=== PATIENT | female | born 1980 | race Caucasian/White ===

== ENCOUNTER 2018-04-07 04:51 | Observation (INO) ==
[2018-04-07] MEDS ORDERED: Isovue-370 500 ML INFUS..BTL IV ONE (05:24)
[2018-04-07] MEDS ORDERED: *HR* HYDROcodone/Acet 5/325 mg TABLET PO ONE (05:43)
--- NOTE | 2018-04-07 05:46 | Emergency Department Note ---
Disposition Clinical Impression: Neck pain Cellulitis Qualifiers: Site of cellulitis: unspecified site Qualified Code(s): L03.90 - Cellulitis, unspecified Headache Qualifiers: Headache type: unspecified Headache chronicity pattern: acute headache Intractability: not intractable Qualified Code(s): R51 - Headache Disposition: Still a Patient Condition: Good Referrals: NONE,PCP [Primary Care Provider] - Forms: ED Satisfaction Letter Time of Disposition: 06:35 General Adult HPI - General Chief complaint: ED Skin/Abscess/Foreign Body Stated complaint: bug bite rt ankle/neck stiffness Time Seen by Provider: 04/07/18 04:56 Source: patient Limitations: no limitations Nursing Notes Reviewed: Yes Vital Signs Reviewed: Yes - History of Present Illness HPI Narrative: 38-year-old female presents with multiple complaints. She mentioned she had a headache that started 4 nights ago. She is unable to tell me if it was gradual in onset, or acute, or what she was doing at the time of his onset, but she does describe it has been constant. She mentions that ibuprofen makes the pain more dull, but does not alleviate the pain. 2 days ago, she started to have mild neck pain that has been constant since then. Then yesterday morning, she noticed her right ankle had become red, and tender. She states that she had noticed that feeling itchy did not notice the redness until she awoke yesterday morning. She denies any fever or chills, confusion, vision changes, nausea, vomiting, weakness, weight loss, appetite changes, h/o cancer, trauma injury or trauma, or history of headache. Pain Scale: 7 - Related Data Previous Rx's Medication Instructions Recorded Acetaminophen w/Cod 300-30 mg 1 each PO Q6HR #12 tablet 05/05/17 [Tylenol w/Codeine #3] Allergies Allergy/AdvReac Type Severity Reaction Status Date / Time prednisone Allergy Severe Confusion Verified 05/26/15 08:18 vancomycin Allergy Severe Flushing Verified 05/26/15 08:19 tramadol [From Ultram] AdvReac Confusion Verified 09/11/15 19:02 All systems ED: reviewed and negative except as stated. Review of Systems: As Per HPI Constitutional: Reports: as per HPI Eyes: Reports: as per HPI. Denies: eye discharge ENT ED: Denies: throat pain, dental pain, congestion Cardiovascular: Denies: chest pain, palpitations Respiratory: Denies: cough, dyspnea, wheezes, hemoptysis Gastrointestinal: Reports: as per HPI Genitourinary: Denies: dysuria Musculoskeletal: Reports: as per HPI. 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 Absent: conjunctival injection, nystagmus, periorbital swelling, periorbital tenderness - ENT ENT exam: normal exam, normal oropharynx, mucous membranes moist - Neck Neck exam: Present: normal inspection, full ROM, trachea midline. Absent: meningismus, lymphadenopathy - Chest Chest inspection: Present: symmetric chest wall rise - Respiratory Respiratory exam: Present: normal lung sounds bilaterally. Absent: respiratory distress - Cardiovascular Cardiovascular exam: Present: regular rate, normal rhythm - Abdominal Exam Abdominal exam: Present: soft, Non-Tender - Extremities Exam Extremities exam: Present: full ROM, normal capillary refill - Expanded Lower Extremity Exam Hip/Pelvis exam: Absent: full ROM Ankle exam: Present: erythema (right medial) 1 - erythema Foot/toe exam: Present: normal inspection, full ROM Neurovascular/Tendon exam: Present: normal capillary refill. Absent: pulse deficit, motor deficit, sensory deficit Gait: observed and normal - Back Exam Back exam: Present: full ROM - Neurological Exam Neurological exam: Present: alert, oriented X3, CN II-XII intact, normal gait, reflexes normal. Absent: motor sensory deficit - Psychiatric Psychiatric exam: Present: normal affect, normal mood - Skin Skin exam: Present: warm, dry, intact, normal color. Absent: rash, cyanosis, diaphoresis Course Course Narrative: Patient presents with headache 4 days, neck pain 2 days, and erythema on her ankle times one day. Patient seen and examined. her vitals within normal limits. Medial aspect of right ankle, does show well demarcated erythema, with mild tenderness and warmth, consistent with cellulitis. I see no evidence of abscess, lymphangitic streaking, nor edema. On exam: No facial swelling, throat swelling, or lymphadenopathy. Pt afebrile, no AMS, no known h/o of immune compromised state; patient denies any systemic symptoms Kernig's and Brudzinski's test negative, no meningeal signs. No vertebral tenderness. No gross focal neurological deficits. Discussed patient with Dr. Shearer, with no history of headaches, neck pain, he did advise for CTA head, neck. Analgesics ordered. - Reevaluation(s) Reevaluation #1: Patient returned from CT scan. Report pending. She has had some improvement after Norc. Patient discussed with Dr. Shearer, who also had face time with patient. Due to concerning rash, reported bug bite, neck pain, and headache, we will plan for lumbar puncture. He also advised for 2 g ceftriaxone, and vancomycin. Patient does have documented reaction to vancomycin, describes flushing and "red man" syndrome. Did discuss with Dr. Shearer, who advised for in a drill, and to run vancomycin at half normal rate. We will order Benadryl for this, and Reglan for headache as well. Due to shift change, care of this patient will be transferred to day shift provider Ricco Duke CNP, and likely daytime attending physicians. Please see their documentation for further details, and final disposition of patient. Time: 06:34 Vital Signs Temperature 98.0 F 04/07/18 04:54 Pulse Rate 76 04/07/18 04:54 Respiratory Rate 16 04/07/18 04:54 Blood Pressure 127/76 04/07/18 04:54 O2 Sat by Pulse Oximetry 99 04/07/18 04:54 Temperature 98.0 F 04/07/18 05:11 Pulse Rate 62 04/07/18 06:29 Respiratory Rate 16 04/07/18 06:29 Blood Pressure 123/52 04/07/18 06:29 O2 Sat by Pulse Oximetry 98 04/07/18 06:29 Oxygen Delivery Oxygen Delivery Room Air Attestation Statement - Attestation Attestation: I examined this patient and my medical decision-making was reviewed with the Resident Physician. I agree with the documented findings, disposition and treatment plan as described except to the extent set forth below. Findings consistent with neck pain, headache with no history of migrainous headaches. No previous imaging. Patient did sustain a bug bite with surrounding cellulitis at the initiation of her symptoms. I cannot clinically prove that this was a bug bite but I do have a rash in the setting of neck pain and headache. We will obtain CT angiography of the head and the neck to rule out aneurysmal bleeding and if this is negative we will offer a lumbar puncture to rule out encephalitis versus meningitis. Given the findings of possible cellulitis I would empirically treated with vancomycin as well as ceftriaxone at this point. 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 This will also treat her headache and she will be given metoclopramide as well. The patient will be signed out for lumbar puncture to Dr. bojorquez
[2018-04-07] MEDS ORDERED: cefTRIAXone 2,000 MG in Water for inj. (sterile) 20 ML 20 ML IVP ONE (06:21)
[2018-04-07] MEDS ORDERED: Metoclopramide 10 MG/2 ML VIAL IVP ONE ×2 (06:30→22:30)
[2018-04-07 06:38] LABS: Basophils # 0.1 K/mcL (0.0-0.2); Basophils % 0.8 %; Eosinophils # 0.2 K/mcL (0.0-0.6); Eosinophils % 2.8 %; Hematocrit 41.6 % (35.3-44.9); Hemoglobin 13.8 g/dL (11.5-15.4); Immature Granulocytes % 0.3 % (0-4); Lymphocytes # 1.6 K/mcL (0.6-4.6); Lymphocytes % 20.8 %; Mean Corpuscular HGB Conc 33.2 g/dL (31.6-35.5); Mean Corpuscular Hemoglobin 30.6 pg (28.0-33.3); Mean Corpuscular Volume 92.2 fL (83.0-100.0); Mean Platelet Volume 10.8 fL (9.4-12.4); Monocytes # 0.7 K/mcL (0.0-1.3); Monocytes % 9.3 %; Neutrophils # 5.2 K/mcL (1.6-8.9); Platelet Count 196 K/mcL (140-400); Red Blood Count 4.51 M/mcL (3.82-4.97); Red Cell Distribution Width 13.1 % (11.5-14.5)
--- NOTE | 2018-04-07 06:39 | Emergency Department Note ---
Disposition Clinical Impression: Neck pain Cellulitis Qualifiers: Site of cellulitis: unspecified site Qualified Code(s): L03.90 - Cellulitis, unspecified Headache Qualifiers: Headache type: unspecified Headache chronicity pattern: acute headache Intractability: not intractable Qualified Code(s): R51 - Headache Disposition: Admitted As Inpatient Condition: Good Time of Disposition: 09:07 General Adult HPI - General Chief complaint: ED Skin/Abscess/Foreign Body Stated complaint: bug bite rt ankle/neck stiffness Time Seen by Provider: 04/07/18 04:56 Source: patient Limitations: no limitations - History of Present Illness Pain Scale: 7 - Related Data Previous Rx's Medication Instructions Recorded Acetaminophen w/Cod 300-30 mg 1 each PO Q6HR #12 tablet 05/05/17 [Tylenol w/Codeine #3] Allergies Allergy/AdvReac Type Severity Reaction Status Date / Time prednisone Allergy Severe Confusion Verified 05/26/15 08:18 vancomycin Allergy Severe Flushing Verified 05/26/15 08:19 tramadol [From [facility]] AdvReac Confusion Verified 09/11/15 19:02 Constitutional: Reports: as per HPI Eyes: Reports: as per HPI. Denies: eye discharge ENT ED: Denies: throat pain, dental pain, congestion Cardiovascular: Denies: chest pain, palpitations Respiratory: Denies: cough, dyspnea, wheezes, hemoptysis Gastrointestinal: Reports: as per HPI Genitourinary: Denies: dysuria Musculoskeletal: Reports: as per HPI. 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 We see Sid's documentation for care performed prior to my arrival. Briefly, this is an alert and oriented nontoxic-appearing 88-year-old female that presented for a "bug bite" on her ankle that was noticed yesterday. He also reported a headache for the past 4 days and neck pain for the past 2 days. She denies any history of prior headaches. She had a negative Kernig's and Brudzinski's test. No meningeal signs present. This patient's case was discussed with Dr. Shearer, ED attending. He advised a CTA of the head and neck as well as basic screening labs followed by a lumbar puncture. Imaging and laboratory workup pending at this time. The patient was started on Rocephin and vancomycin for her apparent right ankle cellulitis. Diagnostic lumbar puncture performed. Please see Dr. Haq's procedural note. 0850: I spoke with Dr. Alaniz, hospitalist on-call. He has agreed to accept the patient for further observation and treatment. Vital Signs Temperature 98.0 F 04/07/18 04:54 Pulse Rate 76 04/07/18 04:54 Respiratory Rate 16 04/07/18 04:54 Blood Pressure 127/76 04/07/18 04:54 O2 Sat by Pulse Oximetry 99 04/07/18 04:54 Temperature 98.0 F 04/07/18 05:11 Pulse Rate 59 04/07/18 08:42 Respiratory Rate 18 04/07/18 08:42 Blood Pressure 119/78 04/07/18 08:42 O2 Sat by Pulse Oximetry 100 04/07/18 08:42 Oxygen Delivery Oxygen Delivery Room Air Medical Decision Making - Medical Records Medical records reviewed: Yes I reviewed the patient's medical records. - Lab Data Lab results reviewed: Yes I reviewed the patient's lab results. Lab results narrative: Laboratory Last Values WBC 7.9 K/mcL (4.3-11.1) 04/07/18 05:35 RBC 4.51 M/mcL (3.82-4.97) 04/07/18 05:35 Hgb 13.8 g/dL (11.5-15.4) 04/07/18 05:35 Hct 41.6 % (35.3-44.9) 04/07/18 05:35 MCV 92.2 fL (83.0-100.0) 04/07/18 05:35 MCH 30.6 pg (28.0-33.3) 04/07/18 05:35 MCHC 33.2 g/dL (31.6-35.5) 04/07/18 05:35 RDW 13.1 % (11.5-14.5) 04/07/18 05:35 Plt Count 196 K/mcL (140-400) 04/07/18 05:35 MPV 10.8 fL (9.4-12.4) 04/07/18 05:35 Immature Gran % 0.3 % (0-4) 04/07/18 05:35 Seg Neutrophils % 66.0 % 04/07/18 05:35 Lymphocytes % 20.8 % 04/07/18 05:35 Monocytes % 9.3 % 04/07/18 05:35 Eosinophils % 2.8 % 04/07/18 05:35 Basophils % 0.8 % 04/07/18 05:35 Neutrophils # 5.2 K/mcL (1.6-8.9) 04/07/18 05:35 Lymphocytes # 1.6 K/mcL (0.6-4.6) 04/07/18 05:35 Monocytes # 0.7 K/mcL (0.0-1.3) 04/07/18 05:35 Eosinophils # 0.2 K/mcL (0.0-0.6) 04/07/18 05:35 Basophils # 0.1 K/mcL (0.0-0.2) 04/07/18 05:35 PT 11.0 Seconds (9.4-12.1) 04/07/18 06:35 INR 1.0 04/07/18 06:35 APTT 32.2 Seconds (26.0-36.0) 04/07/18 06:35 Sodium 140 mEq/L (136-145) 04/07/18 05:35 Potassium 3.8 mEq/L (3.5-5.1) 04/07/18 05:35 Chloride 108 mEq/L (98-107) H 04/07/18 05:35 Carbon Dioxide 24 mEq/L (23-29) 04/07/18 05:35 BUN 9 mg/dL (6-20) 04/07/18 05:35 Creatinine 0.72 mg/dL (0.60-1.20) 04/07/18 05:35 Est GFR ( Amer) > 60 (> 60) 04/07/18 05:35 Est GFR (Non-Af Amer) > 60 (> 60) 04/07/18 05:35 BUN/Creatinine Ratio 13 (6-26) 04/07/18 05:35 Glucose 106 mg/dL (70-105) H 04/07/18 05:35 Calculated Osmolality 289 (280-300) 04/07/18 05:35 Calcium 9.0 mg/dL (8.6-10.3) 04/07/18 05:35 CSF Volume 5.0 mL 04/07/18 08:25 CSF Appearance Clear (Clear) 04/07/18 08:25 CSF Color Colorless (Colorless) 04/07/18 08:25 CSF RBC < 0.002 M/mcL (0.000-0.002) 04/07/18 08:25 CSF Tot Nucleated Cells < 3 TNC/mcL (0-5) 04/07/18 08:25 Result diagrams: 04/07/18 05:35 04/07/18 05:35 Lab Results 04/07/18 04/07/18 04/07/18 Range/Units 05:35 05:35 06:35 WBC 7.9 (4.3-11.1) K/mcL RBC 4.51 (3.82-4.97) M/mcL Hgb 13.8 (11.5-15.4) g/dL Hct 41.6 (35.3-44.9) % MCV 92.2 (83.0-100.0) fL MCH 30.6 (28.0-33.3) pg MCHC 33.2 (31.6-35.5) g/dL RDW 13.1 (11.5-14.5) % Plt Count 196 (140-400) K/mcL MPV 10.8 (9.4-12.4) fL Immature Gran % 0.3 (0-4) % Seg Neutrophils % 66.0 % Lymphocytes % 20.8 % Monocytes % 9.3 % Eosinophils % 2.8 % Basophils % 0.8 % Neutrophils # 5.2 (1.6-8.9) K/mcL Lymphocytes # 1.6 (0.6-4.6) K/mcL Monocytes # 0.7 (0.0-1.3) K/mcL Eosinophils # 0.2 (0.0-0.6) K/mcL Basophils # 0.1 (0.0-0.2) K/mcL PT 11.0 (9.4-12.1) Seconds INR 1.0 APTT 32.2 (26.0-36.0) Seconds Sodium 140 (136-145) mEq/L Potassium 3.8 (3.5-5.1) mEq/L Chloride 108 H (98-107) mEq/L Carbon Dioxide 24 (23-29) mEq/L BUN 9 (6-20) mg/dL Creatinine 0.72 (0.60-1.20) mg/dL Est GFR ( Amer) > 60 (> 60) Est GFR (Non-Af Amer) > 60 (> 60) BUN/Creatinine Ratio 13 (6-26) Glucose 106 H (70-105) mg/dL Calculated Osmolality 289 (280-300) Calcium 9.0 (8.6-10.3) mg/dL CSF Volume mL CSF Appearance (Clear) CSF Color (Colorless) CSF RBC (0.000 - 0.002) M/mcL CSF Tot Nucleated Cells (0-5) TNC/mcL 04/07/18 Range/Units 08:25 WBC (4.3-11.1) K/mcL RBC (3.82-4.97) M/mcL Hgb (11.5-15.4) g/dL Hct (35.3-44.9) % MCV (83.0-100.0) fL MCH (28.0-33.3) pg MCHC (31.6-35.5) g/dL RDW (11.5-14.5) % Plt Count (140-400) K/mcL MPV (9.4-12.4) fL Immature Gran % (0-4) % Seg Neutrophils % % Lymphocytes % % Monocytes % % Eosinophils % % Basophils % % Neutrophils # (1.6-8.9) K/mcL Lymphocytes # (0.6-4.6) K/mcL Monocytes # (0.0-1.3) K/mcL Eosinophils # (0.0-0.6) K/mcL Basophils # (0.0-0.2) K/mcL PT (9.4-12.1) Seconds INR APTT (26.0-36.0) Seconds Sodium (136-145) mEq/L Potassium (3.5-5.1) mEq/L Chloride (98-107) mEq/L Carbon Dioxide (23-29) mEq/L BUN (6-20) mg/dL Creatinine (0.60-1.20) mg/dL Est GFR ( Amer) (> 60) Est GFR (Non-Af Amer) (> 60) BUN/Creatinine Ratio (6-26) Glucose (70-105) mg/dL Calculated Osmolality (280-300) Calcium (8.6-10.3) mg/dL CSF Volume 5.0 mL CSF Appearance Clear (Clear) CSF Color Colorless (Colorless) CSF RBC < 0.002 (0.000 - 0.002) M/mcL CSF Tot Nucleated Cells < 3 (0-5) TNC/mcL - Radiology Data Radiology results reviewed: Yes I reviewed the patient's radiology results. Angiography CT 04/07/18 05:24 IMPRESSION: Unremarkable CTA of the head and neck. Anomalous right subclavian artery D/ / Waqar Garcia MD / Waqar Garcia MD Interpreting Provider: Waqar Garcia MD Neck CTA 04/07/18 05:24
[2018-04-07 06:45] LABS: BUN/Creatinine Ratio 13 (6-26); Blood Urea Nitrogen 9 mg/dL (6-20); Carbon Dioxide 24 mEq/L (23-29); Chloride 108 mEq/L (98-107); Glucose 106 mg/dL (70-105); Osmolality,Calculated 289 (280-300); Potassium 3.8 mEq/L (3.5-5.1); Sodium 140 mEq/L (136-145); eGFR For African Americans > 60 (> 60); eGFR For Non-African Americans > 60 (> 60)
[2018-04-07 07:34] LABS: Activated Partial Thrombo Time 32.2 Seconds (26.0-36.0)
--- NOTE | 2018-04-07 07:40 | Emergency Department Note ---
Disposition Clinical Impression: Neck pain Cellulitis Qualifiers: Site of cellulitis: unspecified site Qualified Code(s): L03.90 - Cellulitis, unspecified Headache Qualifiers: Headache type: unspecified Headache chronicity pattern: acute headache Intractability: not intractable Qualified Code(s): R51 - Headache Disposition: Admitted As Inpatient Condition: Good General Adult HPI - General Chief complaint: ED Skin/Abscess/Foreign Body Stated complaint: bug bite rt ankle/neck stiffness Time Seen by Provider: 04/07/18 04:56 Source: patient Limitations: no limitations - History of Present Illness Pain Scale: 7 - Related Data Home Medications Medication Instructions Recorded Confirmed Ibuprofen [Motrin Ib] 800 mg PO Q8H PRN 04/07/18 04/07/18 Allergies Allergy/AdvReac Type Severity Reaction Status Date / Time prednisone AdvReac Severe Confusion Verified 04/07/18 09:46 vancomycin AdvReac Severe See Verified 04/07/18 09:46 Comments tramadol [From Ultram] AdvReac Nausea Verified 04/07/18 09:46 Constitutional: Reports: as per HPI Eyes: Reports: as per HPI. Denies: eye discharge ENT ED: Denies: throat pain, dental pain, congestion Cardiovascular: Denies: chest pain, palpitations Respiratory: Denies: cough, dyspnea, wheezes, hemoptysis Gastrointestinal: Reports: as per HPI Genitourinary: Denies: dysuria Musculoskeletal: Reports: as per HPI. 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, bilateral tubal ligation - Social History Smoking Status: Current every day smoker Smokeless Tobacco Status: No Alcohol use: Reports: none Drug use: Reports: none Physical Exam - General Limitations: no limitations General appearance: alert, in no apparent distress Course Vital Signs Temperature 98.0 F 04/07/18 04:54 Pulse Rate 76 04/07/18 04:54 Respiratory Rate 16 04/07/18 04:54 Blood Pressure 127/76 04/07/18 04:54 O2 Sat by Pulse Oximetry 99 04/07/18 04:54 Temperature 98.0 F 04/07/18 05:11 Pulse Rate 59 04/07/18 08:42 Respiratory Rate 18 04/07/18 08:42 Blood Pressure 119/78 04/07/18 08:42 O2 Sat by Pulse Oximetry 100 04/07/18 08:42 Oxygen Delivery Oxygen Delivery Room Air Medical Decision Making - Lab Data Result diagrams: 04/07/18 05:35 04/07/18 05:35 Lab Results 04/07/18 04/07/18 04/07/18 Range/Units 05:35 05:35 06:35 WBC 7.9 (4.3-11.1) K/mcL RBC 4.51 (3.82-4.97) M/mcL Hgb 13.8 (11.5-15.4) g/dL Hct 41.6 (35.3-44.9) % MCV 92.2 (83.0-100.0) fL MCH 30.6 (28.0-33.3) pg MCHC 33.2 (31.6-35.5) g/dL RDW 13.1 (11.5-14.5) % Plt Count 196 (140-400) K/mcL MPV 10.8 (9.4-12.4) fL Immature Gran % 0.3 (0-4) % Seg Neutrophils % 66.0 % Lymphocytes % 20.8 % Monocytes % 9.3 % Eosinophils % 2.8 % Basophils % 0.8 % Neutrophils # 5.2 (1.6-8.9) K/mcL Lymphocytes # 1.6 (0.6-4.6) K/mcL Monocytes # 0.7 (0.0-1.3) K/mcL Eosinophils # 0.2 (0.0-0.6) K/mcL Basophils # 0.1 (0.0-0.2) K/mcL PT 11.0 (9.4-12.1) Seconds INR 1.0 APTT 32.2 (26.0-36.0) Seconds Sodium 140 (136-145) mEq/L Potassium 3.8 (3.5-5.1) mEq/L Chloride 108 H (98-107) mEq/L Carbon Dioxide 24 (23-29) mEq/L BUN 9 (6-20) mg/dL Creatinine 0.72 (0.60-1.20) mg/dL Est GFR ( Amer) > 60 (> 60) Est GFR (Non-Af Amer) > 60 (> 60) BUN/Creatinine Ratio 13 (6-26) Glucose 106 H (70-105) mg/dL Calculated Osmolality 289 (280-300) Calcium 9.0 (8.6-10.3) mg/dL CSF Volume mL CSF Appearance (Clear) CSF Color (Colorless) CSF RBC (0.000 - 0.002) M/mcL CSF Tot Nucleated Cells (0-5) TNC/mcL CSF Glucose (40-70) mg/dL CSF Xanth Comm (Not Observe) CSF Total Protein (15-45) mg/dL 04/07/18 Range/Units 08:25 WBC (4.3-11.1) K/mcL RBC (3.82-4.97) M/mcL Hgb (11.5-15.4) g/dL Hct (35.3-44.9) % MCV (83.0-100.0) fL MCH (28.0-33.3) pg MCHC (31.6-35.5) g/dL RDW (11.5-14.5) % Plt Count (140-400) K/mcL MPV (9.4-12.4) fL Immature Gran % (0-4) % Seg Neutrophils % % Lymphocytes % % Monocytes % % Eosinophils % % Basophils % % Neutrophils # (1.6-8.9) K/mcL Lymphocytes # (0.6-4.6) K/mcL Monocytes # (0.0-1.3) K/mcL Eosinophils # (0.0-0.6) K/mcL Basophils # (0.0-0.2) K/mcL PT (9.4-12.1) Seconds INR APTT (26.0-36.0) Seconds Sodium (136-145) mEq/L Potassium (3.5-5.1) mEq/L Chloride (98-107) mEq/L Carbon Dioxide (23-29) mEq/L BUN (6-20) mg/dL Creatinine (0.60-1.20) mg/dL Est GFR ( Amer) (> 60) Est GFR (Non-Af Amer) (> 60) BUN/Creatinine Ratio (6-26) Glucose (70-105) mg/dL Calculated Osmolality (280-300) Calcium (8.6-10.3) mg/dL CSF Volume 5.0 mL CSF Appearance Clear (Clear) CSF Color Colorless (Colorless) CSF RBC < 0.002 (0.000 - 0.002) M/mcL CSF Tot Nucleated Cells < 3 (0-5) TNC/mcL CSF Glucose 63 (40-70) mg/dL CSF Xanth Comm Not Observed (Not Observe) CSF Total Protein 36 (15-45) mg/dL Critical Care Time Critical Care Time: Yes Total Critical Care Time: 40 Attestation: Critical care performed: Time is exclusive of separately billable procedures. Time includes: direct patient care, patient reassessment, coordination of patient care, interpretation of data (laboratory data, radiology data, and respiratory data), review of patient's medical records, medical consultation and documentation of patient care. Procedures included in critical care time: Procedures excluded from critical care time: Attestation Statement - Attestation Attestation: I have personally performed a face to face evaluation on this patient. I have reviewed and agree with the care plan. History and Exam by me shows: Patient signed out by Dr. Shearer pending lumbar puncture. Patient complaining of head pain neck pain and a bug bite to her ankle. Concern for encephalitis. CTA is negative for aneurysm. LP performed by Dr. Mendoza with my constant supervision. CSF clear with no signs of infection. Antibiotics have been started. Antiviral started. Admitted to medicine. Angiography CT 04/07/18 05:24 IMPRESSION: Unremarkable CTA of the head and neck. Anomalous right subclavian artery D/ / Waqar Garcia MD / Waqar Garcia MD Interpreting Provider: Waqar Garcia MD Neck CTA 04/07/18 05:24
[2018-04-07] MEDS ORDERED: Acyclovir 500 MG in D5% in Water 100 ML IVPB ONE (08:42)
[2018-04-07 08:51] LABS: Red Blood Cell,CSF < 0.002 M/mcL
[2018-04-07 08:53] LABS: Appearance,CSF Clear (Clear)
--- NOTE | 2018-04-07 09:01 | Emergency Department Note ---
Disposition Clinical Impression: Neck pain Cellulitis Qualifiers: Site of cellulitis: unspecified site Qualified Code(s): L03.90 - Cellulitis, unspecified Headache Qualifiers: Headache type: unspecified Headache chronicity pattern: acute headache Intractability: not intractable Qualified Code(s): R51 - Headache Disposition: Admitted As Inpatient Condition: Good Time of Disposition: 09:01 General Adult HPI - General Chief complaint: ED Skin/Abscess/Foreign Body Stated complaint: bug bite rt ankle/neck stiffness Time Seen by Provider: 04/07/18 04:56 Source: patient Limitations: no limitations - History of Present Illness HPI Narrative: This note is for the sole purpose of a procedural note. Please see note by nurse practitioner and attending physician for history of present illness, review of systems, physical exam, disposition. Pain Scale: 7 - Related Data Home Medications Medication Instructions Recorded Confirmed Ibuprofen [Motrin Ib] 800 mg PO Q8H PRN 04/07/18 04/07/18 Allergies Allergy/AdvReac Type Severity Reaction Status Date / Time prednisone AdvReac Severe Confusion Verified 04/07/18 09:46 vancomycin AdvReac Severe See Verified 04/07/18 09:46 Comments tramadol [From Ultram] AdvReac Nausea Verified 04/07/18 09:46 Constitutional: Reports: as per HPI Eyes: Reports: as per HPI. Denies: eye discharge ENT ED: Denies: throat pain, dental pain, congestion Cardiovascular: Denies: chest pain, palpitations Respiratory: Denies: cough, dyspnea, wheezes, hemoptysis Gastrointestinal: Reports: as per HPI Genitourinary: Denies: dysuria Musculoskeletal: Reports: as per HPI. 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, bilateral tubal ligation - Social History Smoking Status: Current every day smoker Smokeless Tobacco Status: No Alcohol use: Reports: none Drug use: Reports: none Physical Exam - General Limitations: no limitations General appearance: alert, in no apparent distress Course Vital Signs Temperature 98.0 F 04/07/18 04:54 Pulse Rate 76 04/07/18 04:54 Respiratory Rate 16 04/07/18 04:54 Blood Pressure 127/76 04/07/18 04:54 O2 Sat by Pulse Oximetry 99 04/07/18 04:54 Temperature 98.0 F 04/07/18 05:11 Pulse Rate 59 04/07/18 08:42 Respiratory Rate 18 04/07/18 08:42 Blood Pressure 119/78 04/07/18 08:42 O2 Sat by Pulse Oximetry 100 04/07/18 08:42 Oxygen Delivery Oxygen Delivery Room Air Procedures - Lumbar Puncture Consent Obtained: written consent Time Out Performed: Yes Patient Position: upright Skin Prep: Povidone-Iodine 1% Local Anesthetic: lidocaine 1%, with epi Amount of anesthesia used (mL): 2 Spinal Needle Gauge: 22G Interspace Used: L3-L4 Fluid Initially Obtained: clear Complications: Need to have other Practitioner Attempt Medical Decision Making - Lab Data Result diagrams: 04/07/18 05:35 04/07/18 05:35 Lab Results 04/07/18 04/07/18 04/07/18 Range/Units 05:35 05:35 06:35 WBC 7.9 (4.3-11.1) K/mcL RBC 4.51 (3.82-4.97) M/mcL Hgb 13.8 (11.5-15.4) g/dL Hct 41.6 (35.3-44.9) % MCV 92.2 (83.0-100.0) fL MCH 30.6 (28.0-33.3) pg MCHC 33.2 (31.6-35.5) g/dL RDW 13.1 (11.5-14.5) % Plt Count 196 (140-400) K/mcL MPV 10.8 (9.4-12.4) fL Immature Gran % 0.3 (0-4) % Seg Neutrophils % 66.0 % Lymphocytes % 20.8 % Monocytes % 9.3 % Eosinophils % 2.8 % Basophils % 0.8 % Neutrophils # 5.2 (1.6-8.9) K/mcL Lymphocytes # 1.6 (0.6-4.6) K/mcL Monocytes # 0.7 (0.0-1.3) K/mcL Eosinophils # 0.2 (0.0-0.6) K/mcL Basophils # 0.1 (0.0-0.2) K/mcL PT 11.0 (9.4-12.1) Seconds INR 1.0 APTT 32.2 (26.0-36.0) Seconds Sodium 140 (136-145) mEq/L Potassium 3.8 (3.5-5.1) mEq/L Chloride 108 H (98-107) mEq/L Carbon Dioxide 24 (23-29) mEq/L BUN 9 (6-20) mg/dL Creatinine 0.72 (0.60-1.20) mg/dL Est GFR ( Amer) > 60 (> 60) Est GFR (Non-Af Amer) > 60 (> 60) BUN/Creatinine Ratio 13 (6-26) Glucose 106 H (70-105) mg/dL Calculated Osmolality 289 (280-300) Calcium 9.0 (8.6-10.3) mg/dL CSF Volume mL CSF Appearance (Clear) CSF Color (Colorless) CSF RBC (0.000 - 0.002) M/mcL CSF Tot Nucleated Cells (0-5) TNC/mcL CSF Glucose (40-70) mg/dL CSF Xanth Comm (Not Observe) CSF Total Protein (15-45) mg/dL 04/07/18 Range/Units 08:25 WBC (4.3-11.1) K/mcL RBC (3.82-4.97) M/mcL Hgb (11.5-15.4) g/dL Hct (35.3-44.9) % MCV (83.0-100.0) fL MCH (28.0-33.3) pg MCHC (31.6-35.5) g/dL RDW (11.5-14.5) % Plt Count (140-400) K/mcL MPV (9.4-12.4) fL Immature Gran % (0-4) % Seg Neutrophils % % Lymphocytes % % Monocytes % % Eosinophils % % Basophils % % Neutrophils # (1.6-8.9) K/mcL Lymphocytes # (0.6-4.6) K/mcL Monocytes # (0.0-1.3) K/mcL Eosinophils # (0.0-0.6) K/mcL Basophils # (0.0-0.2) K/mcL PT (9.4-12.1) Seconds INR APTT (26.0-36.0) Seconds Sodium (136-145) mEq/L Potassium (3.5-5.1) mEq/L Chloride (98-107) mEq/L Carbon Dioxide (23-29) mEq/L BUN (6-20) mg/dL Creatinine (0.60-1.20) mg/dL Est GFR ( Amer) (> 60) Est GFR (Non-Af Amer) (> 60) BUN/Creatinine Ratio (6-26) Glucose (70-105) mg/dL Calculated Osmolality (280-300) Calcium (8.6-10.3) mg/dL CSF Volume 5.0 mL CSF Appearance Clear (Clear) CSF Color Colorless (Colorless) CSF RBC < 0.002 (0.000 - 0.002) M/mcL CSF Tot Nucleated Cells < 3 (0-5) TNC/mcL CSF Glucose 63 (40-70) mg/dL CSF Xanth Comm Not Observed (Not Observe) CSF Total Protein 36 (15-45) mg/dL
[2018-04-07 09:39] LABS: Glucose,CSF 63 mg/dL (40-70); Total Protein,CSF 36 mg/dL (15-45)
[2018-04-07] MEDS ORDERED: tiZANidine 4 MG TABLET PO PRN ×2 (09:59→10:04)
[2018-04-07] MEDS ORDERED: Ondansetron 4 MG/2 ML VIAL IVP PRN (09:59)
[2018-04-07] MEDS ORDERED: Naloxone 0.4 MG/ML INJ IVP PRN (10:16)
[2018-04-07 13:06] LABS: Bilirubin,Urine Negative (Negative); Blood,Urine Trace (Negative); Clarity,Urine Clear (Clear); Color,Urine Dark Yellow (Yellow); Glucose,Urine (UA) Normal (Normal); Ketones,Urine Negative (Negative); Leukocyte Esterase,Urine Negative (Negative); Nitrite,Urine Negative (Negative); PH,Urine 5.5 pH Units (5.0-8.0); Protein,Urine Negative (Neg-Trace); Specific Gravity,Urine > 1.030 (1.010-1.025); Urobilinogen,Urine Normal (Normal)
[2018-04-07 13:10] LABS: Bacteria,Urine Few per hpf (None-Few); Hyaline Casts,Urine None Seen per lpf (None-Few); Squamous Epithelial Cell,Urine Many per lpf (None-Few)
[2018-04-07 13:22] LABS: RBC,Urine 0-3 per hpf (0-3)
[2018-04-07] MEDS ORDERED: Acetaminophen/Butalbital/CaffeineTABLET PO STA (14:58)
[2018-04-07] MEDS ORDERED: Metoclopramide 10 MG/2 ML VIAL IVP STA (14:58)
--- NOTE | 2018-04-07 16:27 | Internal Med History&Physical ---
Date of Encounter: 04/07/18 Time of Encounter: 10:07 Internal Medicine - H&P: HPI Chief complaint: "Headache, neck pain, and bug bit on right foot" Admitted From: Emergency Dept Plans for Post Hospital Care: Home History of present illness: Ms. Oneil is a 38 year old female who presented to ED today for headache and neck pain. She states that headache started today. She states that she has tightness in her neck muscles. Pain is generalized over entire head with no nausea, vomiting, photophobia, phonophobia, or other neurological deficits. She states that she gets intermittent headaches. She denies any history of migraine headaches. She denies fever, chills, chest pain, SOB, nausea, vomiting , abdominal pain, changes in bladder, or changes in bowels. She had an insect bite on her right medial foot. This has become more erythematous and painful over last week. In the ED, lumbar puncture was performed. CSF fluid tests are pending. She received IV vancomycin, IV rocephin, and IV acyclovir to cover for meningitis. She received reglan and norco for headache. At the time of my interview, she states that headache is better but still present. She is not in any distress. Past Med Surg Social Fam HX - Past Medical History Attestation: Yes The following information was validated with the patient. Source: patient Medical history: no medical history Psychiatric history: anxiety - Past Surgical History Surgical History: , cholecystectomy Additional surgical history: tubal, teeth removed - Social History Smoking Status: Current every day smoker Smokeless Tobacco Status: No Alcohol use: none Drug use: none - Additional Family History Additional family history: No significant family history per patient. Internal Medicine - H&P: Meds Ibuprofen [Motrin Ib] 800 mg PO Q8H PRN 04/07/18 [History] 3 Allergy/AdvReac Type Severity Reaction Status Date / Time prednisone AdvReac Severe Confusion Verified 04/07/18 09:46 vancomycin AdvReac Severe See Verified 04/07/18 09:46 Comments tramadol [From Ultram] AdvReac Nausea Verified 04/07/18 09:46 All Systems PM: A 10-system review of systems was performed and is negative for pertinent findings except as documented above in the HPI. - Constitutional Vitals: Temp Pulse Resp BP Pulse Ox 98.5 F 62 16 108/67 98 04/07/18 14:53 04/07/18 14:53 04/07/18 14:53 04/07/18 14:53 04/07/18 14:53 General appearance: Present: cooperative, A&O X 3, pleasant, no acute distress, answers questions appropriately - Head Head exam: Present: atraumatic, normal inspection, normocephalic - Eye Eye exam: Present: EOMI, PERRL. Absent: conjunctival injection, nystagmus, scleral icterus - ENT ENT exam: Present: mucous membranes moist, normal external ear exam, normal oropharynx - Neck Neck exam general surgery: Present: full ROM, supple, trachea midline. Absent: lymphadenopathy, tenderness, nuchal rigidity, thyromegaly - Respiratory Respiratory exam: Present: CTAB. Absent: accessory muscle use, rales, rhonchi, wheezes Additional comments: Normal WOB - Cardiovascular Cardiovascular exam: Present: RRR, +S1, +S2. Absent: diastolic murmur, gallop, rubs, systolic murmur Additional comments: No BLE edema - GI/Abdominal GI/Abdominal exam: Present: normal bowel sounds, soft. Absent: distended, hepatomegaly, mass, splenomegaly, tenderness - Neurological Exam Neurological exam: Present: alert, CN II-XII intact, oriented X3, no focal deficits, strengths equal and symetr throughout. Absent: motor sensory deficit , facial droop, speech deficit - Psychiatric Psychiatric exam: Present: normal affect, normal mood. Absent: agitated, anxious, depressed - Skin Skin exam: Present: dry, intact, warm. Absent: cyanosis Additional comments: 2 cm diameter area of erythema on RLE medial malleolus, no edema, mild TTP, no abscess, no drainage Internal Med - H&P Results - Labs CBC & Chem 7: 04/07/18 05:35 04/07/18 05:35 Labs: Urine 04/07/18 Range/Units 12:50 Urine Color Dark Yellow (Yellow) Urine Clarity Clear (Clear) Urine pH 5.5 (5.0-8.0) pH Units Ur Specific [place] > 1.030 H (1.010-1.025) Urine Protein Negative (Neg-Trace) mg/dL Urine Glucose (UA) Normal (Normal) mg/dL - Assessment and plan (1) Headache Current Visit: Yes Status: Acute Assessment and plan: Given neck tenderness, will rule out meningitis as per below. Likely tension headache. No evidence in support of migraine headache. Will try tylenol, naproxen, benadryl, and tizanidine PRN for headache and neck muscle stiffness. Neurochecks Q4H for now. Qualifiers: Headache type: unspecified Headache chronicity pattern: acute headache Intractability: not intractable Qualified Code(s): R51 - Headache (2) Meningitis Current Visit: Yes Status: Suspected Assessment and plan: Lumbar puncture performed in ED. CSF fluid tests pending. Will cover for meningitis for now with IV vancomycin, IV rocephin, and IV acyclovir started in ED. Deescalate with CSF results. Neurochecks Q4H. (3) Cellulitis Current Visit: Yes Status: Acute Assessment and plan: RLE cellulitis likely secondary from insect bite. Continue IV vancomycin and IV rocephin. Recheck labwork in AM. Qualifiers: Site of cellulitis: extremity Site of cellulitis of extremity: lower extremity Laterality: right Qualified Code(s): L03.115 - Cellulitis of right lower limb (4) DVT prophylaxis Current Visit: Yes Status: Acute Assessment and plan: Start lovenox 40 mg SQ QD and SCDs. - Time Spent With Patient Total time spent is greater than 50% in coordination of care (as documented) at patient's floor/unit and/or counseling patient: less than 15 minutes
[2018-04-07] MEDS: Acyclovir 500 MG in D5% in Water 100 ML IVPB SCH ×2 (17:21→23:41)
[2018-04-07] MEDS: Acetaminophen 325 MG TABLET PO PRN (20:24)
[2018-04-07] MEDS ORDERED: Acetaminophen/Butalbital/CaffeineTABLET PO ONE (22:27)
[2018-04-08] MEDS: Acetaminophen 325 MG TABLET PO PRN (05:36)
[2018-04-08 05:59] LABS: Basophils # 0.1 K/mcL (0.0-0.2); Basophils % 0.9 %; Eosinophils # 0.3 K/mcL (0.0-0.6); Eosinophils % 4.5 %; Hematocrit 44.9 % (35.3-44.9); Hemoglobin 14.9 g/dL (11.5-15.4); Immature Granulocytes % 0.2 % (0-4); Lymphocytes # 2.2 K/mcL (0.6-4.6); Lymphocytes % 38.3 %; Mean Corpuscular HGB Conc 33.2 g/dL (31.6-35.5); Mean Corpuscular Hemoglobin 30.9 pg (28.0-33.3); Mean Corpuscular Volume 93.2 fL (83.0-100.0); Mean Platelet Volume 10.9 fL (9.4-12.4); Monocytes # 0.5 K/mcL (0.0-1.3); Monocytes % 7.9 %; Neutrophils # 2.8 K/mcL (1.6-8.9); Platelet Count 175 K/mcL (140-400); Red Blood Count 4.82 M/mcL (3.82-4.97); Segmented Neutrophils % 48.2 %
[2018-04-08] MEDS ORDERED: *HR* Enoxaparin 40 MG/0.4 ML SYRINGE SQ SCH (06:00)
[2018-04-08 06:13] LABS: BUN/Creatinine Ratio 10 (6-26); Blood Urea Nitrogen 8 mg/dL (6-20); Calcium 8.8 mg/dL (8.6-10.3); Carbon Dioxide 27 mEq/L (23-29); Chloride 110 mEq/L (98-107); Glucose 100 mg/dL (70-105); Osmolality,Calculated 290 (280-300); Potassium 3.8 mEq/L (3.5-5.1); Sodium 141 mEq/L (136-145); eGFR For African Americans > 60 (> 60); eGFR For Non-African Americans > 60 (> 60)
[2018-04-08] MEDS: Acyclovir 500 MG in D5% in Water 100 ML IVPB SCH (07:48)
[2018-04-08 08:00] VITALS: BP 107/72
[2018-04-08] MEDS ORDERED: cefTRIAXone 1,000 MG in 0.9 % Sodium Chloride Mini Bag 100 ML IVPB SCH (09:00)
--- NOTE | 2018-04-08 10:59 | Discharge Summary ---
Date of Encounter: 04/08/18 Time of Encounter: 10:45 - Discharge Diagnosis (1) Cellulitis Priority: Primary Status: Acute Assessment and Plan: RLE cellulitis likely secondary to S aureus. Stop IV vancomycin and IV rocephin. Finish 10 day course of Keflex. Patient aware she may need to come back if this does not improve. Qualifiers: Site of cellulitis: extremity Site of cellulitis of extremity: lower extremity Laterality: right Qualified Code(s): L03.115 - Cellulitis of right lower limb (2) Headache Priority: Primary Status: Acute Assessment and Plan: Meningitis ruled out. Follow-up with primary care physician. Qualifiers: Headache type: unspecified Headache chronicity pattern: acute headache Intractability: not intractable Qualified Code(s): R51 - Headache (3) Meningitis Priority: Primary Status: Ruled-out Hospital course: Ms. Oneil is a 38 year old female with no significant medical history presented to the emergency room with headache, neck pain, muscle spasms of the neck within the 24 hours prior to admission. She denied nausea, vomiting, photophobia, phonophobia or other neurological deficits. In the emergency room , lumbar puncture was performed that ruled out meningitis. She will had been started on vancomycin and Rocephin and acyclovir. Patient complaint was of right ankle bug bite and surrounding erythema suggestive of cellulitis. She will be released home on a course of Keflex and advised close follow-up with her primary care physician. She is aware that if there is a resistant organism such as MRSA she may need to come back. Discharge discussed with: patient - Time Spent with Patient Total time spent providing and/or coordinating discharge services: Less than 30 minutes - Discharge Medications Prescriptions: cephALEXin [Keflex] 500 mg PO BID 10 Days #20 capsule Home Medications: Ibuprofen [Motrin Ib] 800 mg PO Q8H PRN 04/07/18 [History] cephALEXin [Keflex] 500 mg PO BID 10 Days #20 capsule 04/08/18 [Rx] Allergies/Adverse Reactions: 3 Allergy/AdvReac Type Severity Reaction Status Date / Time prednisone AdvReac Severe Confusion Verified 04/07/18 09:46 vancomycin AdvReac Severe See Verified 04/07/18 09:46 Comments tramadol [From Ultram] AdvReac Nausea Verified 04/07/18 09:46 Date of admission: 04/07/18 10:16 Primary care physician: PCP NONE Consults: 04/07/18 10:18 Consult to Nutrition [CONS] Routine Comment: Consulting Provider: NUTRITION Reason for Dietary Consult: Other Other:: went from size 22 to now size 12 in less than year Discharging clinician: Haylie Myles Anticipated date of discharge: 04/08/18 - Constitutional Vitals: Temp Pulse Resp BP Pulse Ox 97.7 F 50 16 107/72 98 04/08/18 07:59 04/08/18 07:59 04/08/18 07:59 04/08/18 07:59 04/08/18 08:05 Exam: Physical exam Gen: Comfortable, laying in bed, in no visible distress HEENT: Normocephalic, atraumatic. No conjunctival icterus. Moist oral mucosa. Neck: Supple Lungs: Clear to auscultation, no foreign sounds Heart: Normal S1-S2, no murmurs rubs or gallops Abdomen: Normoactive bowel sounds, no guarding rigidity or tenderness Extremities: No edema clubbing or cyanosis Neuro: Alert oriented 3, no focal deficits Skin: Right ankle erythematous rash - Patient Status Disposition: Home, Self-Care Functional capacity at discharge: independent ambulation Overall status at discharge: patient is back to baseline - Discharge Instructions Follow Up With: NONE,PCP [Primary Care Provider] - - Diet and Activity Activity: resume usual activities as tolerated
[2018-04-11 11:55] LABS: West Nile Virus PCR Source CSF
[2018-04-12 09:03] LABS: Borrelia burgdorferi Abs CSF 0.08 LIV (<=0.99)
[2018-04-12 09:24] LABS: HSV 1 Glycoprotein G IgG CSF 0.25 IV (<=0.89)
[2018-04-12 09:41] LABS: West Nile Virus RNA Result NOT DETECTED
== END 2018-04-08 11:30 | disposition home or self-care (01) | DRG 385 ==
LOC: 2SOUTHHOLD 04:51 → EMEROO 04:51 → 2SOUTHHOLD 09:00 → 3ANU 13:40
PROVIDERS: ADMIT Family Medicine; ATTEND Family Medicine